=== PATIENT | female | born 1945 | race Caucasian/White ===

== ENCOUNTER 2017-08-18 16:08 | Emergency (ER) | payer OTHER ==
[~2017-08-18] VITALS: Ht 167.6 cm; Wt 75.5 kg
[~2017-08-18 16:08] MED LIST: CALCCHW25 PO; DICL75 PO; KRIL300C3 PO; LORTA5 PO; LOVA20TA PO; MULT-65 PO; PRED50TA PO; PROT40TA PO; ULTR50TA PO
[2017-08-18 16:17] VITALS: BP 131/57; PULSE 77; RESP 16; TEMP 98.4; O2SAT 98
[2017-08-18] MEDS ORDERED: NEXI20CA PO (16:31)
[2017-08-18] MEDS ORDERED: ASPI-516 CHEW (16:31)
[2017-08-18] MEDS ORDERED: MELO15TA20 PO (16:31)
[2017-08-18] MEDS ORDERED: LUTE25CA (16:31)
[2017-08-18] MEDS ORDERED: SULF500T3 PO (16:31)
[2017-08-18] MEDS ORDERED: RED RICE YEAST PO (16:31)
[2017-08-18] MEDS ORDERED: VITAMIN B12 PO (16:31)
[2017-08-18] MEDS ORDERED: CALC1TAB77 PO (16:31)
[2017-08-18] MEDS ORDERED: OMEGA 3 KRILL OIL PO (16:31)
--- NOTE | 2017-08-18 16:54 | PD ---
HPI Chief Complaint: Musculoskeletal Complaint Time Seen by Provider: 16:28 Travel History International Travel<30 days: No Contact w/Intl Traveler<30days: No Traveled to known affect area: No History of Present Illness HPI 71-year-old female presents emergency department for evaluation of right shoulder pain this started yesterday. Patient states that she has been helping her family out with moving furniture and believes she may have overused her shoulder resulting in this pain. Patient does not remember any inciting event specifically however, says she clean the litter box yesterday and this significantly increased her pain. Patient says she has trouble with range of motion exercises particularly with forward extension of her arm. Patient points to the musculature surrounding the scapula and upper trapezius region. Says in addition she has had some tenderness palpation of the upper arm/deltoid region. Says her pain is mild and increases to moderate in severity with movement of her shoulder. Says she has been trying to move her shoulder however , it is rather painful. Denies radiation of pain. Denies previous injuries to the shoulder. She denies chronic medical issues and medication use. Denies chest pain, shortness of breath. PFSH Past Medical History High Cholesterol: Yes Diminished Hearing: No GERD: Yes Immunizations Current: Yes ?: Not Menopausal: Yes Past Surgical History Cholecystectomy: Yes Gynecologic Surgery: Yes (breast biopsies) Tonsillectomy: Yes Social History Alcohol Use: Yes (occ) Tobacco Use: Yes (1 ppd) Substance Use: No Allergies-Medications (Allergen,Severity, Reaction): Coded Allergies: amoxicillin (Unverified Allergy, Mild, Nausea/Vomiting, 08/18/17) clavulanic acid (Unverified Allergy, Mild, Nausea/Vomiting, 08/18/17) Reported Meds & Prescriptions Reported Meds & Active Scripts Active Robaxin (Methocarbamol) 500 Mg Tab 500 Mg PO TID 5 Days Reported Meloxicam 15 Mg Tab 15 Mg PO DAILY Sulfasalazine 500 Mg Tab 500 Mg PO BID Aspirin 81 Mg Chew 81 Mg CHEW DAILY Nexium (Esomeprazole DR) 20 Mg Capdr 20 Mg PO DAILY Lutein-Zeaxanthin 25-5 Mg Cap [Vitamin B12] 500 Mg PO DAILY [[place] 3 Krill Oil] 350 Mg PO DAILY [Red Rice Yeast] 600 Mg PO DAILY Calcium 500+D3 (Calcium Carbonate-Cholecalciferol) 1,250-400 Mg-Unit Tab 1 Tab PO DAILY Review of Systems Except as stated in HPI: all other systems reviewed are Neg Physical Exam Narrative GENERAL: Well-nourished, well-developed patient. SKIN: Focused skin assessment warm/dry. HEAD: Normocephalic. EYES: No scleral icterus. No injection or drainage. NECK: Supple, trachea midline. No JVD or lymphadenopathy. No midline tenderness CARDIOVASCULAR: Regular rate and rhythm without murmurs, gallops, or rubs. RESPIRATORY: Breath sounds equal bilaterally. No accessory muscle use. GASTROINTESTINAL: Abdomen soft, non-tender, nondistended. No CVA tenderness Right shoulder-tenderness palpation of the deltoid and trapezius area, muscle spasms are noted to the area. Limited range of motion to forward flexion and extension of the arm secondary to pain. Patient unable to perform the empty can test. Negative Meza. MUSCULOSKELETAL: No cyanosis, or edema. BACK: Nontender without obvious deformity. No CVA tenderness. Data Data Last Documented VS Vital Signs Date Time Temp Pulse Resp B/P (MAP) Pulse Ox O2 Delivery O2 Flow Rate FiO2 08/18/17 16:17 98.4 77 16 131/57 (81) 98 Orders Orders Shoulder, Complete (>2vws) (08/18/17 ) Ed Discharge Order (08/18/17 17:21) MDM Medical Decision Making Medical Screen Exam Complete: Yes Emergency Medical Condition: Yes Differential Diagnosis Right shoulder rotator cuff injury, frozen shoulder, shoulder sprain, shoulder fracture Narrative Course 71-year-old female presents emergency department for evaluation of right shoulder pain started yesterday. Patient denies any inciting events in particular however says that she has been helping family move furniture more than usual. Says that she took a Flexeril last night but did not have complete relief of her pain. Vital signs are stable. Exam findings consistent with muscle spasms to the surrounding scapula and trapezius area. This does reproduce the pain in combination with range of motion exercises. Patient requested x-rays of the shoulder. I advised that this likely would not change management administrator however, she believes that the orthopedic physician would request these images. Last Impressions Shoulder X-Ray 08/18/17 0000 Signed Impressions: Service Date/Time: Friday, August 18, 2017 17:00 - CONCLUSION: No acute disease. Decreased bone density. No significant arthropathy. Byron Mon MD Pt will be discharged with robaxin for the muscle spasms. She should take ibuprofen or tylenol per package instructions for further relief. Advised to continue performing range of motion exercises to reduce possibility of frozen shoulder. Use caution with muscle relaxers as they may cause drowsiness. She is strongly advised follow-up with a primary care physician orthopedic physician for further evaluation. Diagnosis Primary Impression: Rotator cuff injury Qualified Codes: S46.001A - Unspecified injury of muscle(s) and tendon(s) of the rotator cuff of right shoulder, initial encounter Additional Impression: Muscle spasm Referrals: Orthopedist Primary Care Physician Additional Instructions: Use ice or heat for symptom relief. If symptoms persist or worsen, return to the emergency department. Follow up with your primary care physician within 2 days. Scripts Methocarbamol (Robaxin) 500 Mg Tab 500 MG PO TID for Muscle Spasm for 5 Days, TAB 0 Refills Prov: Madelin Woods DO 08/18/17 Disposition: 01 DISCHARGE HOME Condition: Stable Aletha Moore Aug 18, 2017 16:54
--- NOTE | 2017-08-18 17:16 | RADRPT ---
EXAM DATE/TIME: 08/18/2017 17:00 [facility] COMPARISON: No previous studies available for comparison. INDICATIONS : Right shoulder pain & limited range of motion with no apparent injury other than possible over use. MEDICAL HISTORY : Hypercholesterolemia. SURGICAL HISTORY : Tonsillectomy. Cholecystectomy. ENCOUNTER: Initial ACUITY: 2 days PAIN SCORE: 7/10 LOCATION: Right shoulder FINDINGS: Multiple view examination of the right shoulder demonstrates no evidence of fracture or dislocation. The glenohumeral and acromioclavicular joints are maintained. There is normal range of motion betwe en internal and external rotation. Decreased bone density is noted. CONCLUSION: No acute disease. Decreased bone density. No significant arthropathy. Byron Mon MD on August 18, 2017 at 17:13 Board Certified Radiologist. This report was verified electronically.
[2017-08-18] MEDS ORDERED: ROBA500T PO (17:20)
[2017-08-19] MEDS ORDERED: VITA500T4 PO (10:33)
[2017-08-19] MEDS ORDERED: OMEG350C PO (10:33)
== END 2017-08-18 17:29 | disposition home or self-care (01) ==
LOC: PHEFT 16:08
DX: S46.001A Unspecified injury of muscle(s) and tendon(s) of the rotator cuff of right shoulder, initial encounter (principal); M62.838 Other muscle spasm; X50.9XXA Other and unspecified overexertion or strenuous movements or postures, initial encounter; E78.00 Pure hypercholesterolemia, unspecified; K21.9 Gastro-esophageal reflux disease without esophagitis; F17.210 Nicotine dependence, cigarettes, uncomplicated
CPT/HCPCS: 73030; 99283